=== PATIENT | female | born 1990 | race Caucasian/White ===

== ENCOUNTER 2017-08-23 16:49 | Emergency (ER) | payer OTHER, SELFPAY ==
[2017-08-23 17:02] VITALS: BP 133/86; PULSE 82; RESP 18; TEMP 36.9; O2SAT 99; BMI 19.5
--- NOTE | 2017-08-23 17:32 | HMH.EDUTC ---
[facility] – [place] Disposition Clinical Impression: Cough Disposition: Home, Self-Care Condition on Discharge: Good Additional Instructions: Follow up with family doctor Return if needed Over the counter Motrin or Tylenol as needed for fever or pain Time of Disposition: 18:32 Medical Decision Making - Medical Records Medical records reviewed: Yes: I reviewed the patient's medical records. Vital Signs: 08/23/17 17:02 Temperature 98.4 F Temperature Source Temporal Artery Scan Pulse Rate [Right] 82 Respiratory Rate 18 Blood Pressure [Right Arm] 133/86 Blood Pressure Mean [Right Arm] 101 Blood Pressure Source [Right Arm] Automatic Cuff Blood Pressure Position [Right Arm] Sitting 02 Sat by Pulse Oximetry 99 Oxygen Delivery Method Room Air Orders (Tests/Meds): ORDERS Category Date Time Status CXR 2 view (NOT portable) [XR chest 2V] Stat Exams 08/23/17 17:39 Taken - Radiology Data #1 Image(s): Chest Image Reviewed: Yes I have reviewed radiologist's interpretation Preliminary Findings: Normal/NAD Vrad read xray as no acute finding - Abelino Inquiry Pt receiving controlled substance: No Abelino was queried for this patient: No [facility] [place] HPI - General Stated complaint: rattling with breathing and pain in right shoulder Mode of Arrival: Ambulatory Source of Information: Patient Limitations: No Limitations Description of Symptoms (Recalled from Triage Doc. by RN): CONGESTION, RIGHT SHOULDER PAIN HEENT Symptoms (Recalled from RN notes): Yes Resp Symptoms (Recalled from RN notes): No Skin Symptoms (Recalled from RN notes): No MS Symptoms (Recalled from RN notes): No Functional Status (Recalled from RN notes): N - History of Present Illness Provider Complaint: Patient state that she recently had both flu and pneumonia States that she is still having nagging cough and not feeling very well so she was worried and wanted to come back in and get checked to make sure the pneumonia was clearing up States that she is not having trouble breathing but when she coughs she has pain sometimes that shoots up into her shoulder area States that she was having the same type of pain when she was diagnosed with pneumonia - Related Data Home Medications Medication Instructions Recorded Confirmed No Known Home Medications [No 08/23/17 08/23/17 Known Home Medications] Allergies Allergy/AdvReac Type Severity Reaction Status Date / Time cefaclor [From CECLOR] Allergy Unknown Verified 08/23/17 17:06 - Worker's Comp Is this a Worker's Comp case?: No H History I have reviewed the patient's past medical history: Yes - *Social History Alcohol Intake: never - Psychiatric History Expresses thoughts of harming self/others: None Suicide Plan Description: No Plan ROS Obtained: Yes All systems reviewed & no additional complaints - Constitutional Constitutional: Reports chills - Respiratory Respiratory: Yes cough Physical Exam - General General appearance: alert, in no apparent distress - ENT ENT exam: Present: normal exam, normal oropharynx, mucous membranes moist, TM's normal bilaterally, normal external ear exam - Respiratory Respiratory exam: Present: normal lung sounds bilaterally. Absent: respiratory distress, wheezes - Cardiovascular Cardiovascular exam: Present: regular rate, normal rhythm. Absent: JVD - Abdominal Exam Abdominal exam: Present: soft, normal bowel sounds. Absent: distention, tenderness, guarding - Neurological Exam Neurological exam: Present: alert, oriented X3
--- NOTE | 2017-08-23 17:38 | ED_ITS ---
[facility] [place] Clinical Impression: Cough Disposition: Home, Self-Care Condition on Discharge: Good Additional Instructions: Follow up with family doctor Return if needed Over the counter Motrin or Tylenol as needed for fever or pain Time of Disposition: 18:32 Medical Decision Making - Medical Records Medical records reviewed: Yes: I reviewed the patient's medical records. Vital Signs: 08/23/17 17:02 Temperature 98.4 F Temperature Source Temporal Artery Scan Pulse Rate [Right] 82 Respiratory Rate 18 Blood Pressure [Right Arm] 133/86 Blood Pressure Mean [Right Arm] 101 Blood Pressure Source [Right Arm] Automatic Cuff Blood Pressure Position [Right Arm] Sitting 02 Sat by Pulse Oximetry 99 Oxygen Delivery Method Room Air Orders (Tests/Meds): ORDERS Category Date Time Status CXR 2 view (NOT portable) [XR chest 2V] Stat Exams 08/23/17 17:39 Taken - Radiology Data #1 Image(s): Chest Image Reviewed: Yes I have reviewed radiologist's interpretation Preliminary Findings: Normal/NAD Vrad read xray as no acute finding - Abelino Inquiry Pt receiving controlled substance: No Abelino was queried for this patient: No [facility] [place] - General Stated complaint: rattling with breathing and pain in right shoulder Mode of Arrival: Ambulatory Source of Information: Patient Limitations: No Limitations Description of Symptoms (Recalled from Triage Doc. by RN): CONGESTION, RIGHT SHOULDER PAIN HEENT Symptoms (Recalled from RN notes): Yes Resp Symptoms (Recalled from RN notes): No Skin Symptoms (Recalled from RN notes): No MS Symptoms (Recalled from RN notes): No Functional Status (Recalled from RN notes): N - History of Present Illness Provider Complaint: Patient state that she recently had both flu and pneumonia States that she is still having nagging cough and not feeling very well so she was worried and wanted to come back in and get checked to make sure the pneumonia was clearing up States that she is not having trouble breathing but when she coughs she has pain sometimes that shoots up into her shoulder area States that she was having the same type of pain when she was diagnosed with pneumonia - Related Data Home Medications Medication Instructions Recorded Confirmed No Known Home Medications [No 08/23/17 08/23/17 Known Home Medications] Allergies Allergy/AdvReac Type Severity Reaction Status Date / Time cefaclor [From CECLOR] Allergy Unknown Verified 08/23/17 17:06 - Worker's Comp Is this a Worker's Comp case?: No [facility] History I have reviewed the patient's past medical history: Yes - *Social History Alcohol Intake: never - Psychiatric History Expresses thoughts of harming self/others: None Suicide Plan Description: No Plan ROS Obtained: Yes All systems reviewed & no additional complaints - Constitutional Constitutional: Reports chills - Respiratory Respiratory: Yes cough Physical Exam - General General appearance: alert, in no apparent distress - ENT ENT exam: Present: normal exam, normal oropharynx, mucous membranes moist, TM's normal bilaterally, normal external ear exam - Respiratory Respiratory exam: Present: normal lung sounds bilaterally. Absent: respiratory distress, wheezes - Cardiovascula
--- NOTE | 2017-08-23 17:39 | XR_ITS ---
XR chest 2V HISTORY: ITS.REASON: COUGH ORDERING PHYSICIAN: Vita Terrell PATIENT AGE: 26 years COMPARISON: 08/05/2015 FINDINGS: The heart size is unremarkable. Pectus excavatum deformity is present causing silhouette of the right heart border and increased density in the right lung base medially. This is similar when compared to the previous exam. There is mild lower thoracic curvature convex left. No lobar consolidation or collapse. No effusions or infiltrates. No acute bony anomalies. IMPRESSION: Pectus excavatum, no acute finding
[2017-08-23 18:35] VITALS: BP 133/86; PULSE 82; RESP 18; TEMP 36.9
== END 2017-08-23 18:52 | disposition home or self-care (01) ==
PROVIDERS: Emergency Provider Nurse Practitioner; Family Provider Internal Medicine Adolescent Medicine
DX: R05 Cough (principal); M25.511 Pain in right shoulder; Z88.1 Allergy status to other antibiotic agents
CPT/HCPCS: 71046; 99202

== ENCOUNTER 2020-08-23 13:59 | Emergency (ER) | payer OTHER, SELFPAY ==
[2020-08-23 14:12] VITALS: BP 159/80; PULSE 118; RESP 18; TEMP 36.7; O2SAT 98; BMI 20.2
--- NOTE | 2020-08-23 14:52 | HMH.EDUTC ---
[facility] [place] Impression: UTI (urinary tract infection) Disposition: Home, Self-Care Condition on Discharge: Good Instructions: Urinary Tract Infection, Urine Culture Additional Instructions: Drink plenty of fluids. Take tylenol or ibuprofen for pain or fever. Take the medications as directed. Follow up with your regular doctor. GO TO THE ER FOR ANY WORSENING SYMPTOMS The pyridium will make your urine turn orange, this is an expected side effect. It will stain your clothes if it comes into contact with them. Prescriptions: Sulfamethoxazole/Trimethoprim [Bactrim DS tablet] 1 each PO BID 3 Days #3 tab Transmission Status: Received by [id number] Phenazopyridine HCl [Pyridium 200mg Tablet] 200 pow PO TID #6 tab Transmission Status: Received by [id number] Referrals: Destinee Singleton [Primary Care Provider] - Time of Disposition: 15:36 Medical Decision Making - Medical Records Medical records reviewed: No: I reviewed the patient's medical records. - Abelino Inquiry Pt receiving controlled substance: No Vital Signs: 08/23/20 14:12 08/23/20 15:36 Temperature 98.1 F 98 F Temperature Source Oral Pulse Rate 115 H Pulse Rate [Right] 118 H Respiratory Rate 18 16 Blood Pressure 141/85 H Blood Pressure [Right Arm] 159/80 H Blood Pressure Mean [Right Arm] 106 Blood Pressure Source [Right Arm] Automatic Cuff Blood Pressure Position [Right Arm] Sitting 02 Sat by Pulse Oximetry 98 Oxygen Delivery Method Room Air - Lab Data Lab Results 08/23/20 14:05: Urine Color Yellow, Urine Appearance Clear, Urine pH 6.5, Ur Specific Lyons 1.015, Urine Protein Negative, Urine Glucose (UA) Negative, Urine Ketones Negative, Urine Blood 3+, Urine Nitrate Negative, Urine Bilirubin Negative, Urine Urobilinogen 1, Ur Leukocyte Esterase Negative [facility] [place] - General Stated complaint: possible uti Time Seen by Provider: 08/23/20 14:52 Mode of Arrival: Ambulatory Source of Information: Patient Limitations: No Limitations Description of Symptoms (Recalled from Triage Doc. by RN): pt is having urinary frequency, and dribbling, some fever, and body aches. pt thinks she has a uti. HEENT Symptoms (Recalled from RN notes): No Resp Symptoms (Recalled from RN notes): No Skin Symptoms (Recalled from RN notes): No MS Symptoms (Recalled from RN notes): No Functional Status (Recalled from RN notes): na - History of Present Illness Provider Complaint: She states that for the past 3 days she has had dysuria and urinary frequency. She has a history of getting UTIs every so often and she thinks that she is getting one now. She denies any fever or chills. - Related Data Previous Rx's Medication Instructions Recorded Phenazopyridine HCl [Pyridium 200 pow PO TID #6 tab 08/23/20 200mg Tablet] Sulfamethoxazole/Trimethoprim 1 each PO BID 3 Days #3 tab 08/23/20 [Bactrim DS tablet] Allergies Allergy/AdvReac Type Severity Reaction Status Date / Time cefaclor [From CECLOR] Allergy Unknown Verified 08/23/20 14:18 - Worker's Comp Is this a Worker's Comp case?: No [facility] History - Hepatitis A Screen Drug use history?: No High risk sexual behaviors?: No History of sexually transmitted infection?: No Currently employed?: No Childcare worker?: No Do you have indoor plumbing?: Yes Do you have electricity?: Yes Attestation statement:: This patient has been screened for Hepatitis A risk factors. I have reviewed the patient's past medical history: Yes - Social History Smoking Status: Unknown if ever smoked Alcohol Intake: never Occupational Status: employed ROS Obtained: Yes All systems reviewed & no additional complaints - Constitutional Constitutional: Reports system reviewed and no additional complaints, except as docu - Eyes Eyes: Reports system reviewed and no additional complaints, except as docu - ENT Ears, Nose, Mouth, and Throat: Reports syst
[2020-08-23 15:15] LABS: Apearance,Urine Clear (Clear); Color,Urine Yellow (Yellow); Glucose,Urine (UA) Negative (Negative); Ketones,Urine Negative (Negative); PH,Urine 6.5 (5.0-8.5); Protein,Urine Negative (Negative); Specific Gravity, Urine 1.015 (1.005-1.030)
[2020-08-23 15:16] LABS: Bilirubin,Urine Negative (Negative); Blood, Urine 3+ (Negative); UTC Leukocyte Esterase,Urine Negative (Negative); UTC Nitrate,Urine Negative (Negative); Urobilinogen,Urine 1 EU/dl (0.2)
[2020-08-23 15:36] VITALS: BP 141/85; PULSE 115; RESP 16; TEMP 36.6
== END 2020-08-23 15:38 | disposition home or self-care (01) ==
PROVIDERS: Emergency Provider Nurse Practitioner Family; PCP Nurse Practitioner Family
DX: N30.00 Acute cystitis without hematuria (principal); Z88.1 Allergy status to other antibiotic agents
CPT/HCPCS: 81003; 99202; G0463